=== PATIENT | female | born 1995 | race Caucasian/White ===

== ENCOUNTER 2020-07-02 06:58 | Inpatient (IN) | payer OTHER ==
[~2020-07-02] VITALS: Ht 157.5 cm; Wt 64.4 kg
[2020-07-02] MEDS ORDERED: PRENATAL CAPLE1 EAC1 PO (08:06)
[2020-07-02] MEDS ORDERED: VITAMIN C1000 MG PO (08:06)
== END 2020-07-04 11:49 | disposition home or self-care (01) | DRG 807 ==
LOC: OB/GYN 06:58 → LDR 06:58 → OB/GYN 18:31
PROVIDERS: ADMIT Obstetrics & Gynecology; ATTEND Obstetrics & Gynecology
PROC: 10E0XZZ Delivery of Products of Conception, External Approach (ICD-10-PCS; principal; 2020-07-02)
PROC: 0W8NXZZ Division of Female Perineum, External Approach (ICD-10-PCS; 2020-07-02)
PROC: 4A1HXFZ Monitoring of Products of Conception, Cardiac Rhythm, External Approach (ICD-10-PCS; 2020-07-02)
PROC: 3E033VJ Introduction of Other Hormone into Peripheral Vein, Percutaneous Approach (ICD-10-PCS; 2020-07-02)
DX: O80 Encounter for full-term uncomplicated delivery (principal); Z37.0 Single live birth; Z3A.39 39 weeks gestation of pregnancy; Z20.828 Contact with and (suspected) exposure to other viral communicable diseases

== ENCOUNTER 2021-08-26 14:10 | Emergency (ER) | payer OTHER ==
[~2021-08-26] VITALS: Ht 157.5 cm; Wt 53.5 kg
[~2021-08-26 14:10] MED LIST: PRENATAL CAPLE1 EAC1 PO; VITAMIN C1000 MG PO
[2021-08-26] MEDS ORDERED: PRENATAL + DHA1 EACH PO (14:19)
[2021-08-26] MEDS ORDERED: ACETAMINOPHEN650 M2 PO (17:56)
[2021-08-26] MEDS ORDERED: CEPHALEXIN500 M1 PO (18:29)
== END 2021-08-26 18:36 | disposition home or self-care (01) ==
LOC: ER 14:10
DX: O26.852 Spotting complicating pregnancy, second trimester (principal); O23.42 Unspecified infection of urinary tract in pregnancy, second trimester; Z3A.12 12 weeks gestation of pregnancy

== ENCOUNTER 2022-03-03 14:44 | Inpatient (IN) | payer OTHER ==
[~2022-03-03] VITALS: Ht 157.5 cm; Wt 63.0 kg
[~2022-03-03 14:44] MED LIST changes: +ACETAMINOPHEN650 M2 PO; +CEPHALEXIN500 M1 PO; +PRENATAL + DHA1 EACH PO
== END 2022-03-05 15:11 | disposition home or self-care (01) | DRG 807 ==
LOC: OB/GYN 14:44 → LDR 14:44 → OB/GYN 22:31
PROVIDERS: ADMIT Obstetrics & Gynecology; ATTEND Obstetrics & Gynecology
PROC: 10E0XZZ Delivery of Products of Conception, External Approach (ICD-10-PCS; principal; 2022-03-04)
PROC: 0W8NXZZ Division of Female Perineum, External Approach (ICD-10-PCS; 2022-03-04)
PROC: 4A1HXCZ Monitoring of Products of Conception, Cardiac Rate, External Approach (ICD-10-PCS; 2022-03-04)
DX: O80 Encounter for full-term uncomplicated delivery (principal); Z37.0 Single live birth; Z3A.39 39 weeks gestation of pregnancy; Z20.822 Contact with and (suspected) exposure to COVID-19